=== PATIENT | female | born 1990 | race Hispanic/Latino ===

== ENCOUNTER → 2020-07-19 14:05 | Outpatient (CLI) | payer OTHER, SELFPAY ==
--- NOTE | 2020-07-19 14:09 | DI.US.S_ITS ---
PROCEDURE: US OB <= 14 WEEKS FETUS INDICATIONS: Bleeding early OUTSIDE/PRIOR DATING DATA: First dating scan (date and location): 07/19/2020. Estimated date of delivery (VALENTÍN) from first dating scan: 03/05/2021. TECHNIQUE: Real-time scanning was performed of the fetus and maternal pelvic organs, with image documentation. Endovaginal scanning was also performed to better visualize the fetus and maternal ovaries. COMPARISON: None. FINDINGS: Embryo: [place]-rump length measures 15 mm corresponding to 7 weeks 2 days. Heart rate measures 150 beats per minute. Measurement variability in dating: +/- 4 weeks by LMP, +/- 7 days by mean sac diameter (use before 6 weeks gestation if crown-rump length not able to be measured), +/- 5 days by crown-rump length (up to 8 weeks 6 days gestation), +/- 7 days by crown-rump length (up to 13 weeks 6 days gestation). Maternal organs: Ovaries within normal limits, with left corpus luteal cyst measuring 2 cm . IMPRESSION: 7 week 2 day single living IUP. Dictated by: Yvan Riojas [facility] Interpreted: Teresa Poole MD on 07/19/2020 at 15:46 Approved by: Teresa Poole M.D. on 07/19/2020 at 17:02
== END ==
PROVIDERS: PCP Nurse Practitioner Family; Referring Provider Obstetrics & Gynecology; Visit Provider Obstetrics & Gynecology
DX: O20.9 Hemorrhage in early pregnancy, unspecified (principal); Z3A.01 Less than 8 weeks gestation of pregnancy; Z87.59 Personal history of other complications of pregnancy, childbirth and the puerperium
CPT/HCPCS: 76801

== ENCOUNTER → 2020-08-26 18:41 | Outpatient (ROUT) | payer OTHER, SELFPAY ==
[2020-08-26 18:52] LABS: Appearance Urine UA CLEAR; Bilirubin Urine UA NEGATIVE (NEGATIVE); Color Urine UA YELLOW; Glucose Urine UA NEGATIVE (Negative); Ketones Urine UA NEGATIVE (NEGATIVE); Leukocyte Esterase Urine UA NEGATIVE (NEGATIVE); Nitrite Urine UA NEGATIVE (Negative); Occult Blood Urine UA TRACE-LYSED (Negative); Protein Urine UA NEGATIVE (Negative); Urobilinogen Urine UA 0.2 E.U./dL (0.2)
[2020-08-26 18:53] LABS: pH Urine UA 6.5 (4.5-8.0)
== END ==
PROVIDERS: PCP Nurse Practitioner Family; Visit Provider Obstetrics & Gynecology
DX: Z34.81 Encounter for supervision of other normal pregnancy, first trimester (principal)
CPT/HCPCS: 81003; 87086

== ENCOUNTER → 2020-08-31 15:19 | Outpatient (CLI) | payer OTHER, SELFPAY ==
[2020-08-31 15:46] LABS: Add Manual Diff / Slide Review NO; Basophils Absolute Auto 0 /uL (0-100); Basophils Percent Auto 0.6 % (0-2); Eosinophils Absolute Auto 100 /uL (0-450); Eosinophils Percent Auto 1.7 % (2-4); Hematocrit 33.6 % (36-46); Hemoglobin 11.9 g/dL (12.0-16.0); Lymphocytes Absolute Auto 2300 /uL (1100-4500); Mean Corpuscular HGB Conc 35.4 % (30-36); Mean Corpuscular Volume 84.6 fL (80-100); Monocytes Absolute Auto 400 /uL (0-900); Monocytes Percent Auto 4.7 % (3-14); Neutrophils Absolute Auto 5300 /uL (1500-7000); Platelet Count 226 X10^3/uL (150-400); Red Blood Cell Count 3.97 X10^6/uL (4.0-5.2); Red Cell Distribution Width 12.6 % (11.6-14.8); White Blood Cell Count 8.1 X10^3/uL (4.5-11.0)
[2020-08-31 16:54] LABS: Glucose 72 mg/dL (70-100)
[2020-09-01 08:14] LABS: RPR Screen Non Reactive (Non Reactive); Varicella IgG Antibody 366 index (Immune >165)
[2020-09-01 18:24] LABS: HIV 1 & 2 Ab/Ag 4th Gen Combo NEGATIVE (NEGATIVE); Hep C Virus Ab w/Reflex Quant NEGATIVE s/c (NEGATIVE); Hepatitis B Surface Antigen NEGATIVE s/c (NEGATIVE); Rubella Antibody IgG 22.1 IU/mL (>15)
== END ==
PROVIDERS: PCP Nurse Practitioner Family; Referring Provider Obstetrics & Gynecology; Visit Provider Obstetrics & Gynecology
DX: Z34.81 Encounter for supervision of other normal pregnancy, first trimester (principal); Z36.0 Encounter for antenatal screening for chromosomal anomalies; Z3A.13 13 weeks gestation of pregnancy
CPT/HCPCS: 36415; 80055; 82947; 83036; 84163; 84702; 86787; 86803; 86850; 86900; 86901; 87389

== ENCOUNTER → 2020-09-26 14:05 | Outpatient (CLI) | payer OTHER, SELFPAY ==
[2020-10-05 14:44] LABS: Sequential Screen 2nd Trimeste SCREEN NEGATIVE
== END ==
PROVIDERS: PCP Nurse Practitioner Family; Referring Provider Obstetrics & Gynecology; Visit Provider Obstetrics & Gynecology
DX: Z34.82 Encounter for supervision of other normal pregnancy, second trimester (principal); Z3A.17 17 weeks gestation of pregnancy
CPT/HCPCS: 36415; 82105; 82677; 84163; 84702; 86336

== ENCOUNTER → 2020-10-21 12:12 | Outpatient (CLI) | payer OTHER, SELFPAY ==
--- NOTE | 2020-10-21 12:13 | DI.US.S_ITS ---
PROCEDURE: US OB >= 14 WEEKS FETUS INDICATIONS: 20 week anatomy scan OUTSIDE/PRIOR DATING DATA: Last menstrual period (LMP): Unknown . LMP-based estimated date of delivery (VALENTÍN): Unknown . First dating scan (date and location): 07/19/2020 . Estimated date of delivery (VALENTÍN) from first dating scan: 03/05/2021 . TECHNIQUE: Real-time scanning was performed of the fetus, with image documentation and biometric measurements. Endovaginal scanning: Not performed COMPARISON: None. FINDINGS: General: A single living intrauterine gestation is present. Presentation: Breech. Placenta: Placental position is posterior , without previa. Amniotic fluid index: 13.1 cm, normal range is 5-24 cm. heart rate: 157 beats per minute. Maternal cervical canal: 5.3 cm long. Normal lower limit is 2.5 cm. biometrics: Biparietal diameter: 4.8 centimeters Head circumference: 18.2 centimeters Abdominal circumference: 15.4 centimeters Femur length: 3.4 centimeters Estimated gestational age from initial scan: not applicable. Composite gestational age from present scan: 20 weeks 4 days Estimated weight and percentile: 364 grams, 38th percentile Measurement variability for biometric dating: +/- 7 days from 14 weeks to 15 weeks 6 days gestation, +/- 10 days from 16 weeks to 21 weeks 6 days gestation, +/- 2 weeks from 22 weeks to 27 weeks 6 days gestation, +/- 3 weeks for 28 weeks gestation or later. weight reference: 4500 g or EFW >90/95% is considered macrosomia or large for gestational age. EFW <10% is small for gestational age. EFW 5% or less is considered intra-uterine growth restriction. Anatomic survey: Neuro: Ventricles are non-dilated at less than 10 mm. Cisterna magna is normal at 3-11 mm. Cerebellum is normal in size and morphology. Nuchal skin fold: Normal at less than 6 mm between 14-21 weeks gestational age. Face: Nose and lips, facial profile are normal. Spine: No evidence for spina bifida. Heart: 4-chambered heart is present, with normal ventricular outflow tracts. Diaphragm: Diaphragm is intact. Stomach: Left-sided stomach is present. Kidneys: No hydronephrosis. Normal is less than 5 mm in 2nd trimester, less than 7 mm in 3rd trimester. Cord: 3-vessel cord has orthotopic insertion. Bladder: Normal in size. Extremities: All 4 extremities identified. IMPRESSION: Single live intrauterine gestation with normal anatomy scan and normal PHANI. Dictated by: Adán Corbin M.D. on 10/21/2020 at 14:39 Approved by: Adán Corbin M.D. on 10/21/2020 at 14:42
== END ==
PROVIDERS: PCP Nurse Practitioner Family; Referring Provider Obstetrics & Gynecology; Visit Provider Obstetrics & Gynecology
DX: Z34.82 Encounter for supervision of other normal pregnancy, second trimester (principal); Z3A.20 20 weeks gestation of pregnancy
CPT/HCPCS: 76811

== ENCOUNTER → 2020-12-10 08:36 | Outpatient (CLI) | payer OTHER, SELFPAY ==
[2020-12-10 11:19] LABS: Hematocrit 33.5 % (36-46); Hemoglobin 11.3 g/dL (12.0-16.0)
[2020-12-10 11:53] LABS: GTT (PREG) 1 Hour PP 50gm Dose 169 mg/dL (76-139)
== END ==
PROVIDERS: PCP Nurse Practitioner Family; Referring Provider Obstetrics & Gynecology; Visit Provider Obstetrics & Gynecology
DX: Z34.82 Encounter for supervision of other normal pregnancy, second trimester (principal); Z3A.25 25 weeks gestation of pregnancy
CPT/HCPCS: 36415; 82950; 85014; 85018

== ENCOUNTER → 2020-12-16 08:57 | Outpatient (CLI) | payer OTHER, SELFPAY ==
[2020-12-16 10:26] LABS: Glucose Fasting Gestational 93 mg/dL (76-95)
[2020-12-16 11:27] LABS: Glucose 1 Hour Gest 156 mg/dL (76-180)
[2020-12-16 12:13] LABS: Glucose Tol Interp,Gestational INTERPRETATION
[2020-12-16 13:33] LABS: Glucose 3 Hour Gest 116 mg/dL (76-140)
[2020-12-16 14:02] LABS: Glucose 2 Hour Gest 127 mg/dL (76-155)
== END ==
PROVIDERS: PCP Nurse Practitioner Family; Referring Provider Obstetrics & Gynecology; Visit Provider Obstetrics & Gynecology
DX: Z34.83 Encounter for supervision of other normal pregnancy, third trimester (principal); R73.09 Other abnormal glucose; Z3A.28 28 weeks gestation of pregnancy
CPT/HCPCS: 36415; 82951; 82952

== ENCOUNTER 2021-01-21 19:37 | Outpatient (CLI) | payer OTHER, SELFPAY ==
[2021-01-21 20:25] LABS: Bacteria Urine None Seen; RBC Urine None Seen (0-5/HPF); WBC Urine None Seen (0-5/HPF)
[2021-01-21 20:27] LABS: Appearance Urine UA CLEAR; Bilirubin Urine UA NEGATIVE (NEGATIVE); Color Urine UA YELLOW; Glucose Urine UA NEGATIVE (Negative); Ketones Urine UA NEGATIVE (NEGATIVE); Leukocyte Esterase Urine UA NEGATIVE (NEGATIVE); Nitrite Urine UA NEGATIVE (Negative); Occult Blood Urine UA NEGATIVE (Negative); Protein Urine UA NEGATIVE (Negative); Specific Gravity Urine UA <=1.005 (1.000-1.035); Urobilinogen Urine UA 0.2 E.U./dL (0.2); pH Urine UA 6.5 (4.5-8.0)
[2021-01-21] MEDS: NIFEdipine 10 MG CAPSULE PO (20:37)
[2021-01-21 20:40] LABS: Culture Indicated Urine Cult Not Indicated; Urine Comments Microscopic Normal
--- NOTE | 2021-01-21 21:05 | P.TNLD_ITS ---
Visit Information Visit Information Date of evaluation: 01/21/21 Primary OB Provider: Krunal Worthy On-call OB Provider: Joy Lance Reason for Evaluation: Yes pre-term labor and Yes other Comments/Additional reasons for admission: 33.5 week complaining of cramping and decreased movement Vital Signs Vital Signs: Blood pressure 108/57, pulse of 86, temperature 96? [facility] Medical History (Updated 01/21/21 @ 21:09 by Joy Lance MD) Family history of diabetes mellitus GDM (gestational diabetes mellitus), class A1 (~2012) Generalized headaches Ovarian cyst (~2015) SAB (spontaneous ) (~03/13/11) (spontaneous vaginal delivery) (~05/13/08) (spontaneous vaginal delivery) (~07/30/12) (spontaneous vaginal delivery) (~10/23/14) Surgical History (Updated 07/20/20 @ 11:38 by Debra Laguerre, RN) No history of previous surgery Family History (Updated 07/20/20 @ 11:37 by Debra Laguerre, RN) Mother Diabetes mellitus Hypertension Stroke Grandmother Hypertension Grandfather No problems noted. Father Eczema Grandmother No problems noted. Grandfather No problems noted. Family/Other Diabetes mellitus Hypertension Social History marital status: number of children: 3 household members: spouse and children lives independently: Yes pets and animals: Yes (X 1 dog) education level: high school occupational status: employed current occupational exposures/hazards: Yes (Childcare ) special wilber needs: No Smoking Status: Former smoker (Very occasional : Quit 2015) Tobacco: How many years used: 4 second hand exposure: No alcohol intake: former (pre- : on occasion) substance use type: does not use Review of Systems Review of Systems Narrative: Patient denies bleeding. No fevers. She was noticing cramping decreased movement. No recent intercourse. She is drinking a lot of fluids. Objective Labs Labs: Laboratory Results - last 24 hr 01/21/21 20:00 Urine Color Yellow Urine Appearance Clear Urine pH 6.5 Ur Specific [place] <=1.005 Urine Protein Negative Urine Glucose (UA) Negative Urine Ketones Negative Urine Occult Blood Negative Urine Nitrate Negative Urine Bilirubin Negative Urine Urobilinogen 0.2 Ur Leukocyte Esterase Negative Urine RBC None seen Urine WBC None seen Urine Bacteria None seen Ur Culture Indicated? Cult not indicated Micro UA Comment Microscopic normal Evaluation Evaluation Baseline heart rate: 145 Variability: Moderate (11-25) monitor accelerations: Present Monitor Decelerations: Absent Uterine Contraction Intensity: Mild Category of Tracing: Reactive Status: Category l Diagnosis, Plan/Disposition Final Diagnosis (1) 33 weeks gestation of : Status: Acute (2) Premature labor in third trimester: Status: Acute Plan/Disposition Plan: Urinalysis was negative for infection. Patient is reassured with the reactive nonstress test and feeling baby move. 1 dose of nifedipine stopped all of her cramping and the contractions on monitor. Patient is to rest. Call if her symptoms recur and worsen. OB Disposition: home
== END 2021-01-21 21:10 | disposition home or self-care (01) ==
LOC: OB 01-24 10:46
PROVIDERS: PCP Nurse Practitioner Family; Referring Provider Specialist; Visit Provider Specialist
DX: O60.03 Preterm labor without delivery, third trimester (principal); O36.8130 Decreased fetal movements, third trimester, not applicable or unspecified; Z3A.33 33 weeks gestation of pregnancy
CPT/HCPCS: 59025; 81001; G0378; G0379

== ENCOUNTER 2021-02-21 01:26 | Observation (INO) | payer OTHER, SELFPAY | END 2021-02-21 04:24 | disposition home or self-care (01) | LOC: LABOR 01:28 | PROVIDERS: Admitting Provider Obstetrics & Gynecology; PCP Nurse Practitioner Family; Referring Provider Obstetrics & Gynecology; Visit Provider Obstetrics & Gynecology | DX: O47.1 False labor at or after 37 completed weeks of gestation (principal); Z3A.38 38 weeks gestation of pregnancy | CPT/HCPCS: 59025; G0378; G0379 ==

== ENCOUNTER 2021-03-02 18:03 | Inpatient (IN) | payer OTHER, SELFPAY ==
[2021-03-02 19:11] VITALS: BP 121/77
[2021-03-02 20:15] LABS: Add Manual Diff / Slide Review NO; Basophils Absolute Auto 0 /uL (0-100); Basophils Percent Auto 0.6 % (0-2); Eosinophils Absolute Auto 100 /uL (0-450); Hematocrit 37.2 % (36-46); Hemoglobin 12.5 g/dL (12.0-16.0); Lymphocytes Absolute Auto 2200 /uL (1100-4500); Lymphocytes Percent Auto 26.4 % (25-40); Mean Corpuscular HGB Conc 33.5 % (30-36); Mean Corpuscular Hemoglobin 28.9 PG (26-34); Mean Corpuscular Volume 86.2 fL (80-100); Monocytes Absolute Auto 500 /uL (0-900); Monocytes Percent Auto 5.9 % (3-14); Neutrophils Absolute Auto 5400 /uL (1500-7000); Neutrophils Percent Auto 66.1 % (50-75); Platelet Count 196 X10^3/uL (150-400); Red Blood Cell Count 4.32 X10^6/uL (4.0-5.2); Red Cell Distribution Width 14.2 % (11.6-14.8); White Blood Cell Count 8.2 X10^3/uL (4.5-11.0)
[2021-03-02 20:59] LABS: COVID19 - ADMIT (NP swab/PCR) Negative (Negative)
[2021-03-02] MEDS: miSOPROStoL 25 MCG TABLET 50 MCG PO (21:09)
--- NOTE | 2021-03-03 06:55 | P.HPOB_ITS ---
OB HPI Date/Time Date of admission: 03/02/21 Date Patient Seen: 03/03/21 Time Patient Seen: 06:55 History of Present Condition Chief complaint: Induction : 5 Para: 3 Estimated Date of Delivery: 03/05/21 Estimated Gestational Age (weeks): 39+5 Narrative: Ruthy Rae is a 30 year old A1 EDD1 admitted for elective induction at 39 weeks 5 days gestational age. course is largely been uncomplicated. She had an elevated 1 hour GDM screen but her 3 hour GTT was negative for gestational diabetes. She did however require insulin for gestational diabetes with her 2nd but not her 3rd. Patient has been GBS positive with all of her previous deliveries and is assumed to be positive this . History of Present care: good care Dating criteria: LMP confirmed by 1st trimester US Ultrasounds: normal 1st trimester US and normal mid trimester US Obstetrical complications: none Medical complications: none Preadmission Labs Blood type: AB (+) positive -: Antibody screen: negative, GBS status: positive, HBsAG: negative, HIV: negative and RPR/VDLR: negative -: Chlamydia screen: not detected and Gonorrhea screen: not detected -: Rubella: immune and Varicella: immune HCT: 37.2 HCAB: negative PAP: Normal Sequential screen: Negative 1 hr GTT: 169 3 hr GTT: 1 hr (156) and 2 hr (127) Fasting blood glucose: 93 Prior (ies) History: x 3; SAB x 1 [facility] Medical History (Updated 02/08/21 @ 17:30 by Krunal Worthy MD) Family history of diabetes mellitus GDM (gestational diabetes mellitus), class A1 (~2012) Generalized headaches Ovarian cyst (~2015) SAB (spontaneous ) (~03/13/11) (spontaneous vaginal delivery) (~05/13/08) (spontaneous vaginal delivery) (~07/30/12) (spontaneous vaginal delivery) (~10/23/14) Surgical History (Updated 07/20/20 @ 11:38 by Debra Laguerre RN) No history of previous surgery Family History (Updated 07/20/20 @ 11:37 by Debra Laguerre RN) Mother Diabetes mellitus Hypertension Stroke Grandmother Hypertension Grandfather No problems noted. Father Eczema Grandmother No problems noted. Grandfather No problems noted. Family/Other Diabetes mellitus Hypertension Social History marital status: number of children: 3 household members: spouse and children lives independently: Yes pets and animals: Yes (X 1 dog) education level: high school occupational status: employed current occupational exposures/hazards: Yes (Childcare ) special wilber needs: No Smoking Status: Never smoker Tobacco: How many years used: 4 second hand exposure: No alcohol intake: former substance use type: does not use Meds Home Medications and Allergies Home Medications Medication Instructions Recorded Confirmed Type prenat.vits,rudy,hjt-jnjj-wqkqm 1 tab PO DAILY 07/20/20 03/02/21 History triamcinolone acetonide 0.1 % 1 applic TOPICAL BID PRN #80 g 02/08/21 03/02/21 Rx topical cream Allergies Allergy/AdvReac Type Severity Reaction Status Date / Time No Known Drug Allergies Allergy Verified 12/30/20 15:46 Review of Systems Review of Systems Narrative: Problem-specific ROS positives included in HPI Objective Labs Result Diagrams: 03/04/21 07:16 Labs: Laboratory Results - last 24 hr 03/02/21 03/02/21 03/02/21 18:40 19:55 19:55 WBC 8.2 RBC 4.32 Hgb 12.5 Hct 37.2 MCV 86.2 MCH 28.9 MCHC 33.5 RDW 14.2 Plt Count 196 Neut % (Auto) 66.1 Lymph % (Auto) 26.4 Gordon % (Auto) 5.9 Eos % (Auto) 1.0 L Baso % (Auto) 0.6 Neut # (Auto) 5400 Lymph # (Auto) 2200 Gordon # (Auto) 500 Eos # (Auto) 100 Baso # (Auto) 0 SARS-CoV-2 (PCR) Negative Blood Type AB Positive Antibody Screen Negative Assessment and Plan Assessment and Plan Assessment and Plan narrative: ASSESSMENT 1. Intrauterine gestation, Tyson, term, vertex 2. 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 History of gestational diabetes with previous PLAN 1. Admit for ripening with oral cytotec; induction to follow once ripening improves Linares's score 2. Initiate AB prophylaxis for GBS + carrier status 3. Anticipate
[2021-03-03] MEDS: PENICILLIN G POTASSIUM 5,000,000 UNIT in DEXTROSE 5% IN WATER 250 ML IV (07:42)
[2021-03-03] MEDS: LACTATED RINGERS 1,000 ML 100 ML IV ×3 (07:42→15:05)
[2021-03-03] MEDS: FENT 2MCG/ML BUPIV 0.125% EPI 200 MCG/100 ML PLAST..BAG 10 MCG EPIDURAL (09:58)
[2021-03-03] MEDS: PENICILLIN G POTASSIUM 3,000,000 UNIT/50 ML FROZ.PIGGY 100 UNIT IV (11:29)
--- NOTE | 2021-03-03 13:13 | PM.OBPNLAB ---
Date/Time Date Patient Seen: 03/03/21 Time Patient Seen: 13:13 Pain Control Pain control: tolerating well Comments: INES in place Pelvic Exam Dilation (cm): 9 Effacement (%): 100 station: 0 Amniotic membrane status: Ruptured Comments: AROM performed @ 1310, clear fluid Contractions Contractions on admission: irregular Monitor mode: External Contraction frequency (min): 5 Contraction duration (min): 1 Contraction pattern: Irregular Contraction phase: Resting Contraction intensity: Moderate Status status: Category l Monitor Accelerations: Present Monitor Decelerations: Early Monitor Variability: Moderate Assessment and Plan Assessment: active labor Plan: continuous present management Comments: Anticipate
[2021-03-03] MEDS: OXYTOCIN PREMIX 30 UNIT/500 ML PLAST..BAG 200 UNIT IV (15:05)
--- NOTE | 2021-03-03 15:15 | PM.OBPRVD ---
Labor & Delivery Delivery date: 03/03/21 Intrapartal Events: None Cervical ripening method: per misoprostal protocol Induction method: none Delivery augmentation: rupture of membranes Delivery monitor: external FHT and external uterine Route of delivery: Episiotomy description: None L&D Laceration Description: None Anesthesia Type: Epidural Complications: None Narrative: Following a brief 2nd stage, the patient delivered spontaneously over an intact perineum at 3:08 p.m. on 03/03/2021 a viable male infant with Apgars of 9 and 9 weighing 3624 g (7 lb 15.8 oz). No shoulder dystocia was experienced and there were no cord entanglements noted. Skin to skin contact was initiated immediately following and delayed cord clamping was performed for greater than 90 seconds. The umbilical cord was then doubly clamped and cut with 3 vessels noted. Routine blood work was submitted and the placenta delivered spontaneously with gentle cord traction. Inspection of the umbilical cord and placenta showed that the placenta was completely intact and there were no abnormalities of the umbilical cord noted. IV Pitocin was initiated and estimated blood loss was approximately 200 cc. There were no lacerations or abrasions noted. The delivery was completed without complication with mother and infant both doing well. Sponge and needle counts were correct before and after delivery. Complications experienced none. [place] Baby 1: Infant gender: Male Presentation: vertex Placenta delivery description: Spontaneous Cord Vessel Description: 3 Vessels score (1 min): 9 score (5 min): 9 weight: 7 lb 15.833 oz Plan for aftercare: Routine care
[2021-03-03] MEDS: METHYLERGONOVINE 0.2 MG/ML VIAL IM (17:41)
[2021-03-03] MEDS: IBUPROFEN 600 MG TABLET PO (18:33)
[2021-03-04] MEDS: IBUPROFEN 600 MG TABLET PO ×2 (00:24→06:43)
[2021-03-04 07:40] LABS: Hematocrit 35.3 % (36-46)
[2021-03-04 08:10] VITALS: BP 108/66; PULSE 70; RESP 16; TEMP 36.2
--- NOTE | 2021-03-04 08:54 | PM.OBDS.1 ---
Discharge Providers Provider Date of admission: 03/02/21 18:03 Discharge Date: 03/04/21 Primary care physician: DORINA Bynum Consults: 03/02/21 18:09 Consult to Anesthesiology Urgent Comment: Consulting Provider: Krunal Worthy Reason for consultation: INES placement in labor if requested by patient Has provider been notified: No 03/04/21 15:12 Consult to [employer] Manager Routine Comment: Discharge provider: Krunal Worthy MD Summary Hospital Course Date Patient Seen: 03/04/21 Time Patient Seen: 08:55 Diagnoses: Intrauterine gestation, Tyson, term, delivered Hospital Course: The patient was admitted for Cytotec ripening and IV antibiotic prophylaxis initiated for GBS positive status. AROM performed following 2nd dose of IV antibiotics and the patient progressed spontaneously with an uneventful vaginal on the afternoon of 03/03/2021 with a viable male Apgars of 9 and 9 and a weight of 364 g (7 lb 15.8 oz). Mother and baby both did well and there were no complications experience. Following delivery she has done extremely well with prompt return of bowel and bladder function and she has remained afebrile, normotensive throughout her course. She is discharged at this time been afebrile normotensive condition, ambulating well, tolerating regular diet, and good pain control with oral medications. Follow-up will be in 6 weeks. Peripartum Data Delivery Method: Natural Vaginal Laceration Description: None Episiotomy description: None complications: none Status at Discharge Cognitive/behavioral status at discharge: oriented Functional status at discharge: independent ambulation Overall status at discharge: patient is progressing back to baseline Time Spent with Patient Time attestation: Total time spent providing and/or coordinating discharge services: Time spent: Less than 30 minutes Objective Labs Result Diagrams: 03/04/21 07:16 Labs: Laboratory Results - last 24 hr 03/04/21 07:16 Hgb 12.0 Hct 35.3 L Exam Vital Signs (past 8 hours): - 03/04/21 08:10 Temperature 97.1 F L Pulse Rate 70 Respiratory Rate 16 Blood Pressure 108/66 Const General: cooperative Nutritional Appearance: average body habitus Orientation: alert HENMT Head: normal to inspection Eyes General: appearance normal, both eyes and all related structures Neck Neck: normal visual inspection Resp Effort & Inspection: normal respiratory effort and able to speak in complete sentences GI Inspection: normal to inspection Palpation: soft, no hepatosplenomegaly and mass (Firm, nontender, U -3 fundus) General: other (Deferred) Extrem General: No calf tenderness Psych Appearance: grossly normal Mental Status: mental status grossly normal Speech and Movement: speech and movement normal Mood: congruent mood Affect: normal affect Attitude: cooperative Thought Process: normal Thought Content: normal Judgment: judgment good Discharge Plan Discharge Plan Patient Disposition: Home Provider Discharge Comment: Please review the written instructions provided at the time of discharge. Your follow-up appointment will be scheduled for 6 weeks and I look forward to seeing you then. If in the meanwhile you have any questions or concerns, please do not hesitate to contact the office. Discharge orders & Medications Prescriptions: Continued triamcinolone acetonide 0.1 % cream 1 applic topical BID PRN (Reason: itching, rash) Qty: 80 RF: 3 prenat.vits,rudy,zwu-ohvt-sqzga Tablet 1 tab PO DAILY RF: 0 Follow up/Referrals: Krunal Worthy MD [Physician] - (please call [phone] on Saturday morning for a 6 week appt.) Discharge Health Status Multidrug resistant organism: No MDRO Diet/Activity/Treatments Diet: Diet as Tolerated Activity: As tolerated Skin/Wound/Dressing Care Report to your healthcare provider any signs of infection, such as:: chills, fever, increased pain, unusual drainage and unusual redness Dressing: N/A Visit Report/Discharge Packet Instructions: DI for Labor and Delivery, Vaginal , DI for and Nipple Soreness Stand Alone Forms: Discharge: Care Discharge Data Primary Care Provider: Rocio Bertrand
== END 2021-03-04 10:45 | disposition home or self-care (01) | DRG 807 ==
PROVIDERS: Admitting Provider Obstetrics & Gynecology; PCP Nurse Practitioner Family; Referring Provider Obstetrics & Gynecology; Visit Provider Obstetrics & Gynecology
DX: O99.824 Streptococcus B carrier state complicating childbirth (principal); Z37.0 Single live birth; Z20.822 Contact with and (suspected) exposure to COVID-19; Z3A.39 39 weeks gestation of pregnancy
CPT/HCPCS: 01967; 36415; 59050; 59200; 59400; 85014; 85018; 85025; 86850; 86900; 86901; 87635; C9803; G0379; J2210; J2540; J2590